=== PATIENT | female | born 1945 | race Two or more races ===

== ENCOUNTER → 2019-10-12 | Outpatient (CLI) | payer MEDICARE, OTHER | LOC: LAB 13:21 | PROVIDERS: ATTEND Internal Medicine Gastroenterology | DX: Z11.59 Encounter for screening for other viral diseases (principal) | CPT/HCPCS: C9803; U0003; 36415 ==

== ENCOUNTER → 2020-08-28 | Outpatient (CLI) | payer MEDICARE, OTHER ==
[~2020-08-28] MED LIST: ASPI-630 PO; ATOR40TA PO; CAPT12.52 PO; CETI10TA74 PO; CHOL500045 PO; LEVO25TA4 PO; LINZESS290 MCG PO; METF10007 PO; SERT50TA PO
== END ==
LOC: LAB 10:09
PROVIDERS: ATTEND Internal Medicine Gastroenterology
DX: Z01.812 Encounter for preprocedural laboratory examination (principal); Z86.010 Personal history of colon polyps; Z20.822 Contact with and (suspected) exposure to COVID-19
CPT/HCPCS: U0003; U0005

== ENCOUNTER → 2020-08-29 | Day surgery (SDC) | payer MEDICARE, OTHER ==
[~2020-08-29] MED LIST changes: +IV RINGERS,LACTATED 1000ML 1,000 ML IV SCH; +LIDOCAINE 2% PF 5 ML VIAL. ONE; +PROPOFOL 10 MG/ML (20ML) VIAL. IV ONE
[2020-08-29 09:57] VITALS: BP 127/62
--- NOTE | 2020-08-29 10:03 | PREOP HP ---
DATE OF SERVICE: 08/29/2020 DATE OF PROCEDURE: 08/29/2020 REQUESTING PHYSICIAN: Dr. Celi Sparks. PRIMARY CARE PHYSICIAN: Dr. Celi Sparks. REASON FOR PROCEDURE: Colorectal cancer screening. HISTORY OF PRESENT ILLNESS: This is a 74-year-old female who presents for colorectal cancer screening. She had a prior colonoscopy that demonstrated internal hemorrhoids. She does have a family history of colorectal cancer in her uncle and grandmother. She is to undergo colonoscopy for further evaluation. ALLERGIES: No known drug allergies. MEDICATIONS: MAR reviewed. PHYSICAL EXAMINATION: VITAL SIGNS: She is afebrile and her vital signs are stable. GENERAL: She is a well-developed, well-nourished female, in no apparent distress. HEENT: Oropharynx is clear. CARDIOVASCULAR: S1, S2. LUNGS: Clear. ABDOMEN: Normoactive bowel sounds, soft, nontender, nondistended. EXTREMITIES: No edema. NEUROLOGIC: Awake, alert and oriented x 3. ASSESSMENT AND PLAN: Colorectal cancer screening. The risks and benefits of the procedure including bleeding, perforation, non-diagnosis and sedation were explained and she has agreed to proceed. Thank you for allowing me to participate in the care of this patient. NETO BLAS MD DR: JUANITA/nigel JOB#: [id number] / [id number]
== END | disposition home or self-care (01) ==
LOC: ENDOS 08:09
PROVIDERS: ATTEND Internal Medicine Gastroenterology
DX: K59.00 Constipation, unspecified (principal); K64.0 First degree hemorrhoids; K55.20 Angiodysplasia of colon without hemorrhage; K21.9 Gastro-esophageal reflux disease without esophagitis; I10 Essential (primary) hypertension; E78.00 Pure hypercholesterolemia, unspecified; M19.90 Unspecified osteoarthritis, unspecified site; E03.9 Hypothyroidism, unspecified; E11.9 Type 2 diabetes mellitus without complications; F41.9 Anxiety disorder, unspecified; F32.9 Major depressive disorder, single episode, unspecified; Z80.0 Family history of malignant neoplasm of digestive organs; Z98.51 Tubal ligation status; Z98.890 Other specified postprocedural states; Z79.899 Other long term (current) drug therapy; Z79.82 Long term (current) use of aspirin; Z79.84 Long term (current) use of oral hypoglycemic drugs; Z87.891 Personal history of nicotine dependence; Z72.89 Other problems related to lifestyle
CPT/HCPCS: 45378; J2704